=== PATIENT | female | born 2000 | race African-American/Black ===

== ENCOUNTER 2022-12-31 14:58 | Emergency (ER) | payer OTHER ==
[2022-12-31 15:07] VITALS: TEMP 98.2; BMI 35.0
[2022-12-31] MEDS ORDERED: SODIUM CHLORIDE 0.9% 1000 ML INFUS.BAG IV ONE (15:38)
[2022-12-31 16:28] LABS: BASO % 0.3 % (0-2.0); EOS % 2.5 % (0-4.5); HEMATOCRIT 37.7 % (32.4-45.2); HEMOGLOBIN 12.4 GM/dL (10.7-15.3); LYMPH % 22.2 % (8-40); MCH 28.3 pg (25.7-33.7); MCHC 32.9 g/dl (32.0-36.0); MEAN CELL VOLUME 86.1 fl (80-96); MEAN PLT VOLUME 8.2 fl (7.5-11.1); MONO % 5.9 % (3.8-10.2); NEUT % 69.1 % (42.8-82.8); PLATELET COUNT 331 10^3/uL (134-434); RBC 4.38 M/mm3 (3.60-5.2); RDW 13.3 % (11.6-15.6); WHITE BLOOD COUNT 7.2 K/mm3 (4.0-10.0)
[2022-12-31 16:30] LABS: EPI CELLS 4 /uL (0-25.1); HYALINE CASTS 0 /uL (0-3.1); PH,URINE 5.5 (5.0-8.0); URINE APPEARANCE CLEAR; URINE BACTERIA 23 /uL (0-1359); URINE BILIRUBIN NEGATIVE (NEGATIVE); URINE COLOR YELLOW; URINE GLUCOSE (UA) NEGATIVE (NEGATIVE); URINE KETONE NEGATIVE (NEGATIVE); URINE LEUK ESTERASE NEGATIVE (NEGATIVE); URINE NITRITE NEGATIVE (NEGATIVE); URINE PROTEIN NEGATIVE (NEGATIVE); URINE RBC 95 /uL (0-23.9); URINE UROBILINOGEN 0.2 mg/dL (0.2-1.0); URINE WBC 4 /uL (0-25.8)
[2022-12-31 16:47] LABS: POTASSIUM 4.3 mmol/L (3.5-5.1)
[2022-12-31 16:49] LABS: CALCIUM 9.2 mg/dL (8.5-10.1)
[2022-12-31 16:50] LABS: ALBUMIN 3.7 g/dl (3.4-5.0); BLOOD UREA NITROGEN 11.8 mg/dL (7-18)
[2022-12-31 16:53] LABS: CREATININE 0.6 mg/dL (0.55-1.3)
[2022-12-31 16:55] LABS: BILIRUBIN,TOTAL 0.5 mg/dL (0.2-1); TOT PROT 7.1 g/dl (6.4-8.2)
[2022-12-31 17:35] VITALS: BP 137/74; PULSE 63; RESP 18
== END 2022-12-31 18:10 | disposition home or self-care (01) ==
LOC: JERFT 14:58
DX: R11.2 Nausea with vomiting, unspecified (principal)
CPT/HCPCS: 0241U-QW; 36415; 80053; 81003; 84703; 85025; 99283-25